=== PATIENT | female | born 1970 | race African-American/Black ===

== ENCOUNTER 2017-10-08 14:21 | Emergency (ER) | payer MEDICAID, SELFPAY ==
[2017-10-08 14:22] VITALS: BP 152/84; PULSE 74; RESP 16; TEMP 36.7; O2SAT 96; BMI 36.2
--- NOTE | 2017-10-08 14:49 | RAD_ITS ---
STUDY: X-RAY - LEFT ANKLE REASON FOR EXAM: Female, 47 years old. Fall. Pain. TECHNIQUE: 3 view(s) of the ankle. COMPARISON: None. FINDINGS: Normal visualized distal tibia and fibula. Normal medial and lateral malleoli. Normal tibiotalar articulation and ankle mortise. Normal visualized talus and calcaneus. The visualized subtalar, talonavicular, calcaneocuboid and tarsal articulations are normal. The soft tissue structures are unremarkable. RAD/Ankle min 3 Views IMPRESSION: No significant abnormality. Electronically Signed: Ernie Jennings MD at 15:31 EST , Service support ,
--- NOTE | 2017-10-08 14:49 | RAD_ITS ---
STUDY: X-RAY - RIGHT HAND REASON FOR EXAM: Female, 47 years old. Generalized hand pain. TECHNIQUE: Three view(s) of the hand. COMPARISON: None. FINDINGS: Bones: There are no acute osseous abnormalities. Joints: The joints are unremarkable. Soft tissues: The soft tissues are unremarkable. Foreign body: None RAD/Hand Min 3 Views IMPRESSION: No acute abnormalities are seen in the hand. Electronically Signed: Ernie Jennings MD at 15:34 EST , Service support ,
--- NOTE | 2017-10-08 14:49 | RAD_ITS ---
STUDY: X-RAY CHEST REASON FOR EXAM: Female, 47 years old. Left clavicle pain after fall. Chest pain. TECHNIQUE: Frontal and lateral views of the chest. COMPARISON: June 18, 2017 FINDINGS: The lungs are clear and expanded. There is no demonstrated pleural abnormality. Normal size heart. Normal mediastinum and hue. Normal visualized pulmonary arteries. Normal visualized aortic arch and descending thoracic aorta. Normal visualized thoracic spine. Normal visualized ribs, clavicles, and shoulders. There is no demonstrated abnormality of the visualized soft tissue structures of the upper abdomen. RAD/Chest PA and Lateral IMPRESSION: No interval change and no significant abnormality. Electronically Signed: Ernie Jennings MD at 15:38 EST , Service support ,
--- NOTE | 2017-10-08 14:49 | RAD_ITS ---
STUDY: X-RAY - PELVIS REASON FOR EXAM: Female, 47 years old. Fall. Bilateral hip pain. TECHNIQUE: One view of the pelvis was obtained. COMPARISON: None. FINDINGS: There is a non-specific bowel gas pattern. Normal visualized soft tissue structures. Normal bilateral iliac wings, sacroiliac joints and visualized sacrum. Normal visualized bilateral superior and inferior pubic rami. Normal pubic symphysis. Normal ischial tuberosities. Normal visualized right femoral head. Normal right acetabulum. Normal right hip joint. Normal visualized left femoral head. Normal left acetabulum. Normal left hip joint. RAD/Pelvis 1 or 2 Views IMPRESSION: No significant abnormality. Electronically Signed: Ernie Jennings MD at 15:35 EST , Service support ,
--- NOTE | 2017-10-08 14:49 | RAD_ITS ---
STUDY: X-RAY - LEFT FOOT CLINICAL: Female, 47 years old. Fall. Pain. TECHNIQUE: 3 view(s) of the foot. COMPARISON: None. FINDINGS: Normal talus, calcaneus, and tarsal bones. Normal visualized subtalar, talonavicular, calcaneocuboid, tarsal and tarsometatarsal articulations. Normal metatarsi. Normal metatarsophalangeal joint of the great toe. Normal tibial and fibular sesamoid bones. Normal interphalangeal joint of the great toe. Normal phalanges of the great toe. Normal second through fifth metatarsophalangeal joints. Normal interphalangeal joints and phalanges of the lesser toes. The soft tissue structures are unremarkable. RAD/Foot min 3 Views IMPRESSION: No significant abnormality. Electronically Signed: Ernie Jennings MD at 15:34 EST , Service support ,
--- NOTE | 2017-10-08 14:51 | ED.VISSUMM ---
- ER Visit Summary Date of Service: 10/08/17 Chief Complaint: Fall History of Present Illness: The patient is a 47 F who presents to the emergency department after a mechanical fall. The patient states she slipped on ice this AM. She landed on her right side, striking her hip and right hand. When she tried to stand, she fell again, landing on her left side twisting her left ankle and hitting her left collarbone. She did not strike her head. She denies loss of consciousness. She states the pain has gradually worsened throughout the day. She has said that ice has helped. She does not take anticoagulants. Physical Examination: Vital signs reviewed General: Well-nourished, well-developed Head: Normocephalic, atraumatic Eyes: Pupils equal and reactive, extraocular muscles intact Neck, supple, no lymphadenopathy Heart: Regular rate and rhythm Respiratory: No distress, clear bilaterally, mild tenderness over the left anterior clavicle with no deformity or step-off Abdomen: Soft, nontender, nondistended, no peritoneal signs Back: Nontender Extremities: Tenderness in the palmar right hand. Normal pulses. Pain at the elbow. No pain at the shoulder. Mild pain over the lateral malleolus of the left ankle. Normal pulses. Hernandez negative. Tenderness to palpation over both hips. No pain with logroll. Pelvis stable. Skin: Normal color no rash Neuro: Alert and oriented, no focal or lateralizing deficits Test Results: [] Emergency Department Course and Treatment: I did obtain plain films of the patient's injured areas. There is no evidence of acute fracture. She is able to ambulate with a steady gait. The patient was given one [place] here. She will be continued on anti-inflammatories and antispasmodics at home. She was counseled on concerning symptoms and reasons to return. Treatment Plan: [] Disposition: Discharge Impression:. Mechanical fall 2. Bilateral hip contusions 3. Right hand contusion 4. Left ankle sprain This note was generated with [employer] dictation software. It may contain incorrect words, spelling, and punctuation that were not noted in review of the chart prior to signing ED Disposition - Plan for ED Patient: Chief Complaint: Fall Instructions: ED Mechanical Fall Prescriptions: Naproxen [Naprosyn] 500 mg PO BID PRN #20 tab Cyclobenzaprine [Flexeril] 10 mg PO TID PRN #20 tab PRN Reason: Muscle Spasm Referrals: Rohith Paulino MD [Primary Care Provider] -
[2017-10-08] MEDS: Acetaminophen/Codeine #3 Tablet 1 TABLET PO (16:18)
[2017-10-08 16:20] VITALS: BP 139/84; PULSE 78; RESP 20; O2SAT 98
--- NOTE | 2017-10-08 16:20 | ED.RN ---
THIS NURSE REVIEWED D/C INSTRUCTIONS WITH PT. PT VERBALIZED UNDERSTANDING OF INSTRUCTIONS. PT DENIES FURTHER NEEDS OR QUESTIONS AT THIS TIME. PT AMBULATES FROM ROOM ON OWN WITHOUT ASSISTANCE FROM STAFF
== END 2017-10-08 16:21 | disposition home or self-care (01) ==
LOC: ED 14:54
PROVIDERS: Emergency Provider Emergency Medicine; Family Provider Family Medicine; PCP Family Medicine
DX: S70.02XA Contusion of left hip, initial encounter (principal); S70.01XA Contusion of right hip, initial encounter; S60.221A Contusion of right hand, initial encounter; S93.402A Sprain of unspecified ligament of left ankle, initial encounter; M25.521 Pain in right elbow; W00.0XXA Fall on same level due to ice and snow, initial encounter; Y93.9 Activity, unspecified; Y92.9 Unspecified place or not applicable; Z86.79 Personal history of other diseases of the circulatory system; Z86.39 Personal history of other endocrine, nutritional and metabolic disease; Z87.891 Personal history of nicotine dependence; Z79.899 Other long term (current) drug therapy
CPT/HCPCS: 71046; 72170; 73130; 73610; 73630; 99283; A4216

== ENCOUNTER 2017-12-20 10:19 | Observation (INO) | payer MEDICAID, SELFPAY ==
[2017-12-20] VITALS (9 sets, daily range): BP systolic 138–150; BP diastolic 74–96; PULSE 62–78; RESP 16; TEMP 36.4–37; O2SAT 94–99; BMI 37.4
--- NOTE | 2017-12-20 10:28 | EKG12_ITS ---
Test Reason : CP Blood Pressure : / mmHG Vent. Rate : 073 BPM Atrial Rate : 073 BPM P-R Int : 200 ms QRS Dur : 074 ms QT Int : 420 ms P-R-T Axes : 060 033 030 degrees QTc Int : 462 ms Normal sinus rhythm T wave abnormality, consider anterior ischemia Abnormal ECG Confirmed by DIMA PRESLEY, KIMO ([id number]), news videotape editor KANDIS SANTOS ([id number]) on 12/23/2017 12:54:53 PM Referred By: YESY Confirmed By:KIMO CH MD
--- NOTE | 2017-12-20 10:28 | RAD_ITS ---
STUDY: X-RAY CHEST REASON FOR EXAM: Female, 47 years old. Chest tightness and pressure. TECHNIQUE: Single portable frontal view of the chest. COMPARISON: October 08, 2017. FINDINGS: The lungs are clear and expanded. There is no demonstrated pleural abnormality. Normal size heart. Normal mediastinum and hue. Normal visualized pulmonary arteries. Normal visualized aortic arch and descending thoracic aorta. Normal visualized thoracic spine. Normal visualized ribs, clavicles, and shoulders. There is no demonstrated abnormality of the visualized soft tissue structures of the upper abdomen. RAD/Chest 1 View (Portable) IMPRESSION: Normal x-ray examination of the chest. Electronically Signed: Brayan Ball MD at 10:50 EDT , Service support ,
--- NOTE | 2017-12-20 10:29 | ED.VISSUMM ---
- ER Visit Summary Date of Service: 12/20/17 Chief Complaint: Chest pain History of Present Illness: The patient is a 47 F presenting with chest heaviness. This started 2 hours prior to arrival. She has substernal heaviness associated with nausea. She has had no vomiting. She denies diaphoresis or shortness of breath. She has lightheadedness. She also states she has a tingling sensation in the right side of her face and right hand. She also complains of head pressure. She has had blurred vision in both eyes ?1 week. She has a history of hypertension. No PE/DVT risk factors. She is not a smoker. Physical Examination: Vitals are stable. Patient is afebrile. Alert no acute distress. HEENT exam is unremarkable. PERRLA, EOMI. Neck is supple. Lungs are clear and equal bilaterally. Heart is regular rate and rhythm. Abdomen is soft nontender nondistended. Extremities are unremarkable. Skin is warm and dry. No focal neurologic deficit. NIH 0 Remainder of exam is unremarkable. Emergency Department Course and Treatment: Patient was given aspirin on arrival. EKG is sinus rate of 73 with anterior T-wave inversion. Chest x-ray is normal. CBC, chemistries unremarkable. Troponin is negative. D-dimer is negative. Due to her neuro symptoms along with chest pain, CTA head neck and chest were obtained and show no acute process. Will discuss with the hospitalist for observation. Disposition: Observation Impression: Chest pain This note was generated with [employer] dictation software. It may contain incorrect words, spelling, and punctuation that were not noted in review of the chart prior to signing ED Disposition - Plan for ED Patient: Chief Complaint: Chest Pain Referrals: Rohith Paulino MD [NON-STAFF] -
[2017-12-20 10:42] LABS: Absolute Lymphocyte Count 2.22 X10^3/ul (0.83-4.51); Absolute Neutrophil Count 4.7 X10^3/uL (2.0-7.7); Basophil# 0.04 X10^3/uL; Basophil% 0.5 % (0-1); Eosinophil# 0.62 X10^3/uL; Eosinophils% 7.8 % (0-5); Hematocrit 38.6 % (37-47); Hemoglobin 13.1 g/dl (12.0-15.0); Lymphocyte # 2.22 X10^3/ul (4.0); Mean Corp Hgb Conc 33.9 g/gl (32-36); Mean Corpuscular Hgb 29.2 pg (27.0-32.0); Mean Platelet Vol. 9.9 fl (6.2-12.0); Monocyte# 0.35 X10^3/uL; Monocyte% 4.4 % (0-10); Neutrophil # 4.66 X10^3/uL (2.7-7.7); Neutrophil % 58.9 % (47-70); Platelet Count 351 K/mm3 (150-450); RBC Distribution Width SD 40.2 fl (35.1-43.9); Red Blood Count 4.49 M/mm3 (4.2-5.4); White Blood Count 7.9 K/mm3 (4.4-11.0)
[2017-12-20] MEDS: Aspirin 81 MG TAB.CHEW 324 MG PO (10:42)
[2017-12-20 10:45] LABS: POSITIVE COUNT NO; POSITIVE DIFFERENTIAL NO; POSITIVE MORPHOLOGY NO
[2017-12-20 11:00] LABS: Anion Gap 6 (5-15); BUN 8 mg/dL (7-18); BUN/Creat Ratio 7.8 RATIO (10-20); Chloride 104 mmol/L (98-107); Creatinine, Serum 1.02 mg/dL (0.55-1.02); EST Glomerular Filtration Rate 61 mL/min (>60); Est Glom Filt Rate - Afr Amer 74 mL/min (>60); Estimated Creatinine Clearance 57.61 ml/min; Glucose 101 mg/dL (74-106); Potassium 3.9 mmol/L (3.5-5.1); Sodium Level 139 mmol/L (136-145)
--- NOTE | 2017-12-20 11:24 | CT_ITS ---
Procedure: CT of the neck without and with contrast-bilateral. INDICATIONS: Headache and chest pain. TECHNIQUE: Axial CT through the neck vasculature. FINDINGS: Bilateral common carotid arteries, carotid bulbs and internal carotid arteries demonstrate mild multifocal plaque formation without hemodynamically significant stenosis. CT/CTA Neck W/WO Contrast IMPRESSION: No evident hemodynamically significant stenosis. Electronically Signed: Brayan Ball MD at 12:35 EDT , Service support ,
--- NOTE | 2017-12-20 11:24 | CT_ITS ---
STUDY: CTA OF THE BRAIN REASON FOR EXAM: Female, 47 years old. Headache, chest pain. RADIATION DOSAGE (If Supplied By Facility): CTDIvol = ( 31.67 ) mGy, DLP = ( 2731.65 ) mGycm TECHNIQUE: CT angiography was performed with a multi-detector CT scanner. Data acquisition was obtained from the skull base through the vertex following intravenous administration of ml of . MIP images were reconstructed from the axial data set. Post-processing of the angiographic images was performed, with multiplanar reformation and 3D reconstruction. Individualized dose optimization techniques were used for this CT. COMPARISON: None. FINDINGS: Normal bilateral petrous carotid arteries. Normal right cavernous carotid artery with a normal supraclinoid bifurcation. Normal left cavernous carotid artery with a normal supraclinoid bifurcation. Normal right A1 segments of the anterior cerebral artery. Normal left A1 segments of the anterior cerebral artery. Normal intact anterior communicating artery (ACOM). Normal bilateral A2 segments of the anterior cerebral arteries. Normal right M1 and M2 segments of the middle cerebral arteries, with a normal M1 bifurcation. Normal left M1 and M2 segments of the middle cerebral arteries, with a normal M1 bifurcation. Normal right posterior communicating artery (PCOM). Normal left posterior communicating artery (PCOM). Normal bilateral vertebral arteries. Normal basilar artery with a normal basilar bifurcation. The visualized bilateral superior cerebellar (SCA) arteries are normal. Normal bilateral P1, P2 and visualized P3 segments of the posterior cerebral arteries. There is no demonstrated aneurysm of the pilot station of [place]. There is no demonstrated abnormality of the visualized brain. CT/CTA Head W/WO Contrast IMPRESSION: Normal pilot [place] of [place] without a demonstrated aneurysm or hemodynamically significant stenosis. Electronically Signed: Brayan Ball MD at 12:34 EDT , Service support ,
--- NOTE | 2017-12-20 11:24 | CT_ITS ---
STUDY: CTA CHEST REASON FOR EXAM: Female, 47 years old. Headache, chest pain, history of hypertension, asthma. RADIATION DOSAGE (If Supplied By Facility): CTDIvol = ( 31.67 ) mGy, DLP = ( 2731.65 ) mGycm TECHNIQUE: The examination was performed with the intravenous administration of 100 ml of Isovue 370 contrast material. Post-processing of the angiographic images was performed, with multiplanar reformation and 3D reconstruction. Individualized dose optimization techniques were used for this CT. COMPARISON: No prior similar exams at this institution. FINDINGS: Normal enhancement of the main pulmonary artery and right and left pulmonary arteries out to third order branching. Normal enhancement of the bilateral peripheral pulmonary arteries. There is no demonstrated pulmonary embolism. Normal thoracic aorta and visualized great vessels. There is no demonstrated aortic dissection. Normal heart and pericardium. A few scattered multistation lymph nodes are evident. None of these are pathologic by size criteria. No pathologic hilar adenopathy. Normal visualized trachea and bronchi. The lungs are well expanded. There is dependent atelectasis without pulmonary nodule or mass. There is no pleural effusion. There is no pneumothorax. Normal chest wall structures. There is no acute osseous abnormality. There is no suspicious lytic or blastic osseous pathology. Normal visualized upper abdomen. CT/CTA Chest W/WO Contrast IMPRESSION: No evident pulmonary embolism or arterial dissection. No lung nodule or mass. No pathologic adenopathy. Electronically Signed: Brayan Ball MD at 12:22 EDT , Service support ,
--- NOTE | 2017-12-20 12:56 | PCM.HP.STD ---
Problem List (1) Chest pain Status: Acute Qualifiers: Chest pain type: unspecified Qualified Code(s): R07.9 - Chest pain, unspecified (2) Fibromyalgia Status: Chronic (3) Rheumatoid arthritis Status: Chronic Qualifiers: Rheumatoid arthritis location: unspecified site Rheumatoid factor presence: unspecified presence Qualified Code(s): M06.9 - Rheumatoid arthritis, unspecified History of Present Illness Date of Admission: 12/20/17 Chief Complaint: Chest pain 1 day The patient is a 47 year old F with past medical history of obesity, hypertension, fibromyalgia comes seen with 1 day history of substernal chest pain, constant, still with some nausea and lightheadedness but did not radiate, lasted for a few minutes and went away. She had associated headaches that have been persistent, denies any runny nose or congestion or sinus pressure. Vitals in the ED was stable except for slight elevation in blood pressure. Labs were unremarkable, troponins were negative. Past Medical History Past Medical History (Chronic Problems): Chronic Problems Fibromyalgia (Chronic) Rheumatoid arthritis (Chronic) Allergies Latex, Natural Rubber Allergy (Verified 12/20/17 10:36) Hives lidocaine Allergy (Verified 12/20/17 10:36) Anaphylaxis silver Allergy (Verified 12/20/17 10:36) Rash Sulfa (Sulfonamide Antibiotics) Allergy (Verified 12/20/17 10:36) Hives amlodipine [From Norvasc] Adverse Reaction (Verified 12/20/17 10:36) HEADACHE Home Medications: Ambulatory Orders Medication Instructions Recorded Duloxetine Hcl [Cymbalta] 120 mg PO QHS 06/18/17 Furosemide [Lasix] 20 mg PO BID 06/18/17 Lansoprazole [Lansoprazole] 30 mg PO DAILY 06/18/17 Metoprolol Succinate 50 mg PO DAILY 12/20/17 Surgical History: cholecystectomy, - - laparoscopy for tubal ligation Psychiatric History: No pertinent psych hx WE[employer]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 Dyspnea Respiratory: Denies: Cough, Hemoptysis, Shortness of breath at rest, Shortness of breath upon exertion, Sputum production Gastrointestinal: Denies: Abdominal Pain, Constipation, Hematemesis, Hematochezia, Nausea, Vomiting Genitourinary: Denies: Dysuria, Frequency, Incontinence Musculoskeletal: Denies: Joint Pain, Joint stiffness, Joint swelling, Joint Tenderness Skin: Denies: Pruritis, Rash, Wounds Neurological: Denies: Difficulty swallowing, Focal weakness, Numbness, Tingling Psychiatric: Denies: Anxiety, Depression, Homicidal Ideations, Suicidal Ideations Hematologic/ Lymphatic: Denies: Easy Bruising, Easy Bleeding VTE Information - Inpt Only VTE Present on Admission: No VTE Pharm Prophylaxis ordered?: Yes Patient Problems: Active and Suspected Problems Chest pain (Acute) - Physical Exam General: Alert, Oriented x3, Cooperative, No apparent distress, - - obes HEENT: Atraumatic, PERRLA, EOMI, Normocephalic Oral: Moist Mucosa Neck: Supple, No JVD, Negative Carotid Bruits, Negative Hepatojugular Reflux Lungs: Clear to auscultation, Normal air movement Cardiovascular: Regular rate, Regular Rhythm, Normal S1, Normal S2, No murmurs Abdomen: Bowel Sounds Present, Soft, Non Tender, Non-Distended, No Hepato-splenomegaly Extremities: No edema Skin: No rashes, No breakdown Musculoskeletal: No Tenderness to Palpation of Joints or Extremities Lymphatic: No Cervical, Supraclavicular, or Inguinal Adenopathy Neurological: Cranial nerves II-XII grossly intact Psych/Mental Status: Normal Affect, Appropriate Vital Signs Temp Pulse Resp BP Pulse Ox 98 F 69 16 149/94 H 94 12/20/17 10:37 12/20/17 12:41 12/20/17 12:41 12/20/17 12:41 12/20/17 12:41 Oxygen Delivery Method Room Air Weight: 99 kg Body Mass Index (BMI) 37.4 Laboratory Tests Past 24 Hrs 12/20/17 12/20/17 12/20/17 10:31 10:31 10:31 WBC 7.9 RBC 4.49 Hgb 13.1 Hct 38.6 MCV 86.0 MCH 29.2 MCHC 33.9 RDW 13.0 RDW Differential 40.2 Plt Count 351 MPV 9.9 Immature Gran % (Auto) 0.400 Neut % (Auto) 58.9 Lymph % (Auto) 28.0 Hinds % (Auto) 4.4 Eos % (Auto) 7.8 H Baso % (Auto) 0.5 Absolute Neuts (auto) 4.7 Absolute Lymphs (auto) 2.22 Total Counted Not Reportable D-Dimer Quant (PE/DVT) 0.30 Sodium 139 Potassium 3.9 Chloride 104 Carbon Dioxide 29.0 Anion Gap 6 BUN 8 Creatinine 1.02 Estim Creat Clear Calc 57.61 Est GFR (MDRD) Af Amer 74 Est GFR (MDRD) Non-Af 61 BUN/Creatinine Ratio 7.8 L Glucose 101 Calcium 9.0 Troponin I < 0.02 Assessment/Plan Active and Suspected Problems Chest pain (Acute) 47 year old F with past medical history of obesity, hypertension, fibromyalgia comes seen with 1 day history of substernal chest pain. 1. Atypical chest pain in a patient with risk factors of obesity, hypertension, no acute findings on EKG, stable vitals Plan: Admit to PCU, trend troponins, stress test in a.m., aspirin 81 mg p.o. daily, 2. Hypertension, continue home medications 3. Fibromyalgia, continue home medications 4. DVT Prophylaxis with Lovenox subcu Code Visit OBSV E&M: [id number] Initial observation care L3
--- NOTE | 2017-12-20 12:57 | NURSING ---
127 OBS CP PAINTSIL
[2017-12-20] MEDS: Acetaminophen 500 MG Tablet 1000 MG PO (13:02)
[2017-12-20] MEDS: Acetaminophen 650 MG/20 ML UDC PO (18:44)
[2017-12-20] MEDS: DULoxetine Hcl 60 MG Capsule 120 MG PO (20:53)
[2017-12-20] MEDS: Furosemide 20 MG Tablet PO (20:54)
[2017-12-21 03:00] VITALS: PULSE 73
--- NOTE | 2017-12-21 04:00 | EKG12_ITS ---
Test Reason : AM EKG Blood Pressure : / mmHG Vent. Rate : 071 BPM Atrial Rate : 071 BPM P-R Int : 202 ms QRS Dur : 078 ms QT Int : 430 ms P-R-T Axes : 046 030 031 degrees QTc Int : 467 ms Normal sinus rhythm Normal ECG When compared with ECG of 20-DEC-2017 10:24, MANUAL COMPARISON REQUIRED, DATA IS UNCONFIRMED Confirmed by DIMA PRESLEY, KIMO ([id number]), proposal editor KANDIS SANTOS ([id number]) on 12/23/2017 1:26:07 PM Referred By: DEVAUGHN Confirmed By:KIMO CH MD
[2017-12-21 05:18] LABS: Hematocrit 36.2 % (37-47); Hemoglobin 12.2 g/dl (12.0-15.0); Mean Corp Hgb Conc 33.7 g/gl (32-36); Mean Corpuscular Hgb 29.3 pg (27.0-32.0); Mean Platelet Vol. 9.4 fl (6.2-12.0); Platelet Count 290 K/mm3 (150-450); RBC Distribution Width CV 13.3 % (11.6-14.6); RBC Distribution Width SD 42.5 fl (35.1-43.9); Red Blood Count 4.16 M/mm3 (4.2-5.4); White Blood Count 7.6 K/mm3 (4.4-11.0)
[2017-12-21 05:19] LABS: Scan Indicated on CBC? Y/N NO
[2017-12-21 05:36] LABS: Anion Gap 7 (5-15); BUN 10 mg/dL (7-18); BUN/Creat Ratio 11.1 RATIO (10-20); Calcium,Total 8.4 mg/dL (8.5-10.1); Chloride 107 mmol/L (98-107); EST Glomerular Filtration Rate 70 mL/min (>60); Est Glom Filt Rate - Afr Amer 85 mL/min (>60); Estimated Creatinine Clearance 65.29 ml/min; Glucose 102 mg/dL (74-106); Potassium 3.6 mmol/L (3.5-5.1); Sodium Level 142 mmol/L (136-145)
[2017-12-21 05:47] LABS: Prothrombin Time (Protime)PT. 13.2 SECONDS (11.7-14.9)
[2017-12-21 05:48] LABS: Partial Thromboplast Time 31.7 Seconds (24.1-36.2)
[2017-12-21] MEDS: Aspirin 81 MG TAB.CHEW PO (05:54)
[2017-12-21 05:58] VITALS: BP 129/87; PULSE 74; RESP 18; TEMP 36.8; O2SAT 96
[2017-12-21 06:16] VITALS: PULSE 71
[2017-12-21 09:50] VITALS: BP 129/78; PULSE 78; RESP 16; TEMP 36.6; O2SAT 96
[2017-12-21] MEDS: Pantoprazole Sodium 40 MG Tablet PO (09:55)
[2017-12-21] MEDS: Furosemide 20 MG Tablet PO (09:55)
[2017-12-21 11:04] VITALS: PULSE 78
--- NOTE | 2017-12-21 11:12 | STRESSREP_ITS ---
Stress Test Report Exercise myocardial perfusion stress test. 47-year-old lady with a history of chest pain. Next Stress protocol: Resting EKG demonstrates normal sinus rhythm with rate of 72 bpm normal intervals and noted resting blood pressure is 144/90. The patient exercised according to regular Rich protocol for total duration of 6 minutes the maximum heart rate attained was 151 bpm which was 88% of maximum predicted heart rate the maximum workload was 7 metabolic equivalents. At rest there were no ST or T -wave changes noted suggest ischemia peak exercise upsloping ST changes only were noted with no meet the criteria for ischemia. The resting blood pressure is 144/90 with a peak blood pressure 172/80 mmHg. The rate pressure product was 27 5800. Myocardial perfusion protocol. 14.7 mCi of technetium 99m sestamibi was injected at rest. The patient exercised according to regular Rich protocol for total duration of 6 minutes attaining a workload of 7 metabolic equivalents. At peak exercise 44.2 mCi of technetium 99m sestamibi was injected. Stress images were obtained stress and rest images were reconstructed and compared in the short axis vertical long and horizontal long axis. Gated images were also obtained. Perfusion SPECT analysis: Review of the stress images demonstrate normal uptake of tracer noted in all areas of the myocardium. The resting images similarly demonstrate normal uptake of tracer noted in all areas of the myocardium. No areas of reversibility were noted suggest ischemia no previous infarct was noted. Gated SPECT analysis. The gated ejection fraction is noted to be 72%. Conclusion: Normal exercise myocardial perfusion stress test at a moderate workload with no ischemia. Preserved ejection fraction.
--- NOTE | 2017-12-21 11:42 | DCINST_ITS ---
- Discharge Diagnoses Current Active Problems: Current Active and Chronic Problems Chest pain (Acute) Fibromyalgia (Chronic) Rheumatoid arthritis (Chronic) You will use the following diet at home:: Cardiac Your food should be the consistency of: Regular Your liquids should be the consistency of: Regular/Thin Discharge Activity: Return to Normal Activity Allergies/Adverse Reactions: Allergies Latex, Natural Rubber Allergy (Verified 12/20/17 10:36) Hives lidocaine Allergy (Verified 12/20/17 10:36) Anaphylaxis silver Allergy (Verified 12/20/17 10:36) Rash Sulfa (Sulfonamide Antibiotics) Allergy (Verified 12/20/17 10:36) Hives amlodipine [From [facility]] Adverse Reaction (Verified 12/20/17 10:36) HEADACHE Medications to take at Discharge Duloxetine Hcl [Cymbalta] 120 mg PO QHS 06/18/17 Furosemide [Lasix] 20 mg PO BID 06/18/17 Lansoprazole 30 mg PO DAILY 06/18/17 Metoprolol Succinate 50 mg PO DAILY 12/20/17 Primary Care Physician: Rohith Paulino MD [NON-STAFF] - Please follow up with your Primary Care Physician in: 1-2 weeks Proposed Discharge Date: 12/21/17
[2017-12-21] MEDS: Acetaminophen 650 MG/20 ML UDC PO (12:02)
--- NOTE | 2017-12-21 13:16 | PCM.DC.SUM ---
<Ted El - Last Filed: 12/21/17 13:16> Discharge Date and Diagnosis Date of Admission: 12/20/17 Date of Discharge: 12/21/17 - Primary Discharge Diagnosis Active and Suspected Problems Chest pain (Acute) - musculoskeletal Fibromyalgia RA HTN Obesity - Secondary Discharge Diagnosis Chronic Problems Fibromyalgia (Chronic) Rheumatoid arthritis (Chronic) Hospital Course and Treatment Imaging Results: Stress test: Conclusion: Normal exercise myocardial perfusion stress test at a moderate workload with no ischemia. Preserved ejection fraction. RAD/Chest 1 View (Portable) IMPRESSION: Normal x-ray examination of the chest. CT/CTA Chest W/WO Contrast IMPRESSION: No evident pulmonary embolism or arterial dissection. No lung nodule or mass. No pathologic adenopathy. CT/CTA Head W/WO Contrast IMPRESSION: Normal [place] without a demonstrated aneurysm or hemodynamically significant stenosis. CT/CTA Neck W/WO Contrast IMPRESSION: No evident hemodynamically significant stenosis. Operations: None Procedures: Stress test Summary of Care Provided: Physical exam on day of discharge: General: Resting comfortably NAD Psych: A/Ox3 normal affect HEENT: PEARRLA AT NC Neck: Supple NT CV: RRR no m/t/r/g/h Resp: CTA Abd: [id number] Soft NT no guarding or rigidity, obese Ext: DP2+= no edema Skin: W/D normal turgor Lymph/Heme: No active bleeding or adenopathy Neuro: CN2-12 intact Hospital course: The patient is a 47 year old F with a hx of htn, obesity, RA, fibromyalgia who presented to the ER with C/C of chest pain described as substernal pain that lasted for about a few minutes with no radiation, but with nausea, LH, and headache. She had negative CXR, negative CTA chest, and negative troponin, and EKG. She was admitted for CP workup. We cycled troponins, kept her on tele, and had her undergo a stres test the following morning. Workup was negative for cardiac etiology. The patients CP was felt to be musculoskeletal in origin. She was discharged home in stable condition. Please follow up with your PCP in 1-2 weeks. This patient was seen by Ted El PA-C under the supervision of Doctor Casper. [] Discharge Diet: Low fat/ Low Cholesterol, 1800 Calorie Control Diet, 2000 mg Sodium Diet Discharge Activity: Return to Normal Activity Home Medications: Medications to take at Discharge RX: Duloxetine Hcl [Cymbalta] 120 mg PO QHS 06/18/17 RX: Furosemide [Lasix] 20 mg PO BID 06/18/17 RX: Lansoprazole 30 mg PO DAILY 06/18/17 RX: Metoprolol Succinate 50 mg PO DAILY 12/20/17 Primary Care Physician: Rohith Paulino MD [NON-STAFF] - Please follow up with your Primary Care Physician in: 1-2 weeks Disposition: Home Minutes spent on discharge:: 35 Patient Condition:: Stable Medical Necessity - Tobacco Use Smoking Status: Never smoker Tobacco Use: Secondhand Meaningful Use Info Meaningful Use Diagnoses (Choose all that apply): None applicable <Edel Casper - Last Filed: 12/21/17 15:07> Discharge Date and Diagnosis - Secondary Discharge Diagnosis Chronic Problems Fibromyalgia (Chronic) Rheumatoid arthritis (Chronic) Hospital Course and Treatment Summary of Care Provided: The patient is a 47 year old F [] Code Visit OBSV E&M: 48174 Observation care discharge
--- NOTE | 2017-12-21 13:22 | DS.PCM_ITS ---
<Ted El - Last Filed: 12/21/17 13:16> Discharge Date and Diagnosis Date of Admission: 12/20/17 Date of Discharge: 12/21/17 - Primary Discharge Diagnosis Active and Suspected Problems Chest pain (Acute) - musculoskeletal Fibromyalgia RA HTN Obesity - Secondary Discharge Diagnosis Chronic Problems Fibromyalgia (Chronic) Rheumatoid arthritis (Chronic) Hospital Course and Treatment Imaging Results: Stress test: Conclusion: Normal exercise myocardial perfusion stress test at a moderate workload with no ischemia. Preserved ejection fraction. RAD/Chest 1 View (Portable) IMPRESSION: Normal x-ray examination of the chest. CT/CTA Chest W/WO Contrast IMPRESSION: No evident pulmonary embolism or arterial dissection. No lung nodule or mass. No pathologic adenopathy. CT/CTA Head W/WO Contrast IMPRESSION: Normal [place] without a demonstrated aneurysm or hemodynamically significant stenosis. CT/CTA Neck W/WO Contrast IMPRESSION: No evident hemodynamically significant stenosis. Operations: None Procedures: Stress test Summary of Care Provided: Physical exam on day of discharge: General: Resting comfortably NAD Psych: A/Ox3 normal affect HEENT: [place] AT NC Neck: Supple NT CV: RRR no m/t/r/g/h Resp: CTA Abd: [id number] Soft NT no guarding or rigidity, obese Ext: DP2+= no edema Skin: W/D normal turgor Lymph/Heme: No active bleeding or adenopathy Neuro: CN2-12 intact Hospital course: The patient is a 47 year old F with a hx of htn, obesity, RA, fibromyalgia who presented to the ER with C/C of chest pain described as substernal pain that lasted for about a few minutes with no radiation, but with nausea, LH, and headache. She had negative CXR, negative CTA chest, and negative troponin, and EKG. She was admitted for CP workup. We cycled troponins, kept her on tele, and had her undergo a stres test the following morning. Workup was negative for cardiac etiology. The patients CP was felt to be musculoskeletal in origin. She was discharged home in stable condition. Please follow up with your PCP in 1-2 weeks. This patient was seen by Ted El PA-C under the supervision of Doctor Casper. [] Discharge Diet: Low fat/ Low Cholesterol, 1800 Calorie Control Diet, 2000 mg Sodium Diet Discharge Activity: Return to Normal Activity Home Medications: Medications to take at Discharge RX: Duloxetine Hcl [Cymbalta] 120 mg PO QHS 06/18/17 RX: Furosemide [Lasix] 20 mg PO BID 06/18/17 RX: Lansoprazole 30 mg PO DAILY 06/18/17 RX: Metoprolol Succinate 50 mg PO DAILY 12/20/17 Primary Care Physician: Rohith Paulino MD [NON-STAFF] - Please follow up with your Primary Care Physician in: 1-2 weeks Disposition: Home Minutes spent on discharge:: 35 Patient Condition:: Stable Medical Necessity - Tobacco Use Smoking Status: Never smoker Tobacco Use: Secondhand Meaningful Use Info Meaningful Use Diagnoses (Choose all that apply): None applicable <Edel Casper - Last Filed: 12/21/17 15:07> Discharge Date and Diagnosis - Secondary Discharge Diagnosis Chronic Problems Fibromyalgia (Chronic) Rheumatoid arthritis (Chronic) Hospital Course and Treatment Summary of Care Provided: The patient is a 47 year old F [] Code Visit OBSV E&M: 90440 Observation care discharge
== END 2017-12-21 11:41 | disposition home or self-care (01) ==
LOC: ED 11:06 → PCU 13:01
PROVIDERS: Admitting Provider Internal Medicine; Emergency Provider Emergency Medicine; Family Provider Family Medicine; PCP Family Medicine; Visit Provider Internal Medicine
DX: R07.89 Other chest pain (principal); R11.0 Nausea; R42 Dizziness and giddiness; H53.8 Other visual disturbances; I10 Essential (primary) hypertension; R06.9 Unspecified abnormalities of breathing; M79.7 Fibromyalgia; Z79.899 Other long term (current) drug therapy; E66.9 Obesity, unspecified; Z68.37 Body mass index [BMI] 37.0-37.9, adult; Z71.3 Dietary counseling and surveillance; R51 Headache
CPT/HCPCS: 36415; 70496; 70498; 71045; 71275; 78452; 80048; 84484; 85025; 85027; 85379; 85610; 85730; 93005; 93017; 97802; 99218; 99285; A9500; Q9967; A4216; G0378; J2785

== ENCOUNTER 2017-12-22 22:28 | Emergency (ER) | payer MEDICAID, SELFPAY ==
[2017-12-22 22:28] VITALS: BP 115/81; PULSE 80; RESP 14; TEMP 36.4; O2SAT 98; BMI 34.3
[2017-12-22] MEDS: proCHLORPERazine 10 MG/2 ML Vial IV (23:10)
[2017-12-22] MEDS: 0.9% Normal Saline 1,000 ML 999 ML IV (23:10)
--- NOTE | 2017-12-22 23:58 | ED.DCSUM_ITS ---
- ER Visit Summary Date of Service: 12/22/17 Chief Complaint: Headache History of Present Illness: The patient is a 47 F who has a headache. She has had this headache for 4 days. She describes it similar to prior migraine headaches. She has had nausea and vomiting today. She has blurred vision with photophobia. She took her Imitrex at home but it did not help. Denies any fevers. Physical Examination: Vital signs reviewed. HEENT exam unremarkable. Heart is regular rate and rhythm without murmurs. Lungs are clear to auscultation. Abdomen is soft and nontender. Extremities reveal no edema. Skin exam normal. Neurologic exam normal. Test Results: None indicated Emergency Department Course and Treatment: Patient was given Compazine, Benadryl and normal saline. Upon reevaluation she is much improved and would like to go home. She will take her home medications and follow-up with PCP Treatment Plan: [] Disposition: Discharge Impression: Migraine headache This note was generated with [employer] dictation software. It may contain incorrect words, spelling, and punctuation that were not noted in review of the chart prior to signing ED Disposition - Plan for ED Patient: Chief Complaint: Headache Referrals: Ashutosh Dwyer MD [Primary Care Provider] -
--- NOTE | 2017-12-22 23:58 | ED.DEP ---
ED Disposition - Plan for ED Patient: Disposition: Home or Assisted Living Chief Complaint: Headache Instructions: ED Headache Migraine Referrals: Ashutosh Dwyer MD [Primary Care Provider] -
[2017-12-23 00:17] VITALS: RESP 18
== END 2017-12-23 00:17 | disposition home or self-care (01) ==
PROVIDERS: Emergency Provider Emergency Medicine; Family Provider Family Medicine; PCP Family Medicine
DX: G43.909 Migraine, unspecified, not intractable, without status migrainosus (principal); J45.909 Unspecified asthma, uncomplicated; I10 Essential (primary) hypertension; M79.7 Fibromyalgia; M06.9 Rheumatoid arthritis, unspecified; Z79.899 Other long term (current) drug therapy
CPT/HCPCS: 96361; 96374; 96375; 99283; J7030; A4216

== ENCOUNTER 2018-04-17 15:01 | Emergency (ER) | payer MEDICAID, SELFPAY ==
[2018-04-17 15:04] VITALS: BP 135/92; PULSE 95; RESP 17; TEMP 36.9; O2SAT 98; BMI 36.8
[2018-04-17] MEDS: Aspirin 81 MG TAB.CHEW 324 MG PO (15:28)
[2018-04-17 15:29] LABS: Absolute Lymphocyte Count 2.74 X10^3/ul (0.83-4.51); Absolute Neutrophil Count 4.4 X10^3/uL (2.0-7.7); Basophil# 0.04 X10^3/uL; Basophil% 0.5 % (0-1); Eosinophil# 0.49 X10^3/uL; Eosinophils% 6.1 % (0-5); Hematocrit 40.5 % (37-47); Hemoglobin 13.3 g/dl (12.0-15.0); Lymphocyte # 2.74 X10^3/ul (4.0); Lymphocyte % 34.2 % (19-41); Mean Corp Hgb Conc 32.8 g/gl (32-36); Mean Corpuscular Hgb 28.2 pg (27.0-32.0); Monocyte# 0.31 X10^3/uL; Monocyte% 3.9 % (0-10); Neutrophil # 4.43 X10^3/uL (2.7-7.7); Neutrophil % 55.2 % (47-70); Platelet Count 360 K/mm3 (150-450); RBC Distribution Width CV 13.3 % (11.6-14.6); RBC Distribution Width SD 41.8 fl (35.1-43.9); Red Blood Count 4.71 M/mm3 (4.2-5.4)
[2018-04-17] MEDS: Acetaminophen 500 MG Tablet 1000 MG PO (15:29)
[2018-04-17] MEDS: 0.9% Normal Saline 1,000 ML 150 ML IV (15:29)
[2018-04-17 15:42] LABS: POSITIVE COUNT NO; POSITIVE DIFFERENTIAL NO; POSITIVE MORPHOLOGY NO
[2018-04-17 15:53] LABS: D-Dimer Quantitative (DVT/PE) 0.34 FEU/ug/m (0.27-0.49)
[2018-04-17 15:56] LABS: Anion Gap 5 (5-15); BUN 6 mg/dL (7-18); BUN/Creat Ratio 5.9 RATIO (10-20); Calcium,Total 9.1 mg/dL (8.5-10.1); Chloride 102 mmol/L (98-107); Creatinine, Serum 1.01 mg/dL (0.55-1.02); EST Glomerular Filtration Rate 62 mL/min (>60); Est Glom Filt Rate - Afr Amer 75 mL/min (>60); Estimated Creatinine Clearance 57.54 ml/min; Glucose 81 mg/dL (74-106); Potassium 3.5 mmol/L (3.5-5.1); Sodium Level 137 mmol/L (136-145)
--- NOTE | 2018-04-17 15:56 | NURSING ---
UNABLE TO REACH [facility] IN [place], [place] ABOUT GETTING H AND P, STRESS TEST RESULTS. ALL PHONE NUMBERS RING BUSY.
--- NOTE | 2018-04-17 16:04 | NURSING ---
TALKED TO JOSEPH AT [place], [place]. SHE WILL FAX H AND P AND STRESS TEST RESULTS
[2018-04-17 16:07] VITALS: BP 135/84; PULSE 78; RESP 12
--- NOTE | 2018-04-17 16:40 | ED.VISSUMM ---
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 She reports that at 1:00 this afternoon she had the onset of chest pain while exerting herself. She reports that it is been constant since that time. She describes it as a tightness with sharp pains that come and go and lasts seconds at a time. Pain is 8 out of 10 at worst and 5 out of 10 currently. Is worsened by lifting her arms up. Is relieved by deep breaths. She reports that she has been lightheaded with this. She denies any associated nausea, vomiting, diaphoresis, shortness of breath. She reports that she had a similar episode earlier this month while she was in [place] and had a stress test that was negative then. Physical Examination: Vitals: Stable. Afebrile. General: Well-nourished and well-developed. Head: Normocephalic atraumatic. Neck: Supple, no lymphadenopathy. No JVD. Nontender. Cardiovascular: Regular rate and rhythm. No murmurs. Respiratory: No respiratory distress. Clear to auscultation bilaterally. Mild tenderness palpation over the costochondral margin bilaterally that does not radiate produce her pain. Abdominal: Soft, nontender, nondistended, normal bowel sounds. No guarding, rebound, or peritoneal signs. Back: Nontender. Extremities: Nontender, no edema. Skin: Normal color, no rash. Neurologic: Alert and oriented ?3. Cranial nerves II through XII are intact. Normal strength and sensation. Psych: Normal affect. Test Results: EKG is sinus at [address] changes. Is unchanged from November of this year. Troponins negative. D-dimer is negative. Chem-7 is more for BUN of 6. CBC is more for eosinophils of 6. Chest x-ray is normal. Emergency Department Course and Treatment: Patient was treated with aspirin and Tylenol. She is resting comfortably. I did receive the stress test from [place] and it was negative. She also had a stress test here December 21 that was normal. Treatment Plan: The patient's pain is very atypical. I feel that she is a suitable candidate for further outpatient evaluation. She will be discharged with instructions to follow-up with Dr. Dwyer as soon as possible. Return to the emergency department for any worsening symptoms. Disposition: To home in improved and stable condition. Impression: 1. Atypical chest pain. 2. CONNIE score of 0. This note was generated with [facility] dictation software. It may contain incorrect words, spelling, and punctuation that were not noted in review of the chart prior to signing ED Disposition - Plan for ED Patient: Chief Complaint: Chest Pain Instructions: ED Chest Pain Atypical Unkn Cause Referrals: Ashutosh Dwyer MD [Primary Care Provider] - As soon as possible
[2018-04-17 16:48] VITALS: BP 122/84; PULSE 85; RESP 14; O2SAT 99
== END 2018-04-17 16:54 | disposition home or self-care (01) ==
LOC: ED 15:57
PROVIDERS: Emergency Provider Emergency Medicine; Family Provider Family Medicine; PCP Family Medicine
DX: R07.89 Other chest pain (principal); R42 Dizziness and giddiness; R51 Headache; J45.909 Unspecified asthma, uncomplicated; I10 Essential (primary) hypertension; M06.9 Rheumatoid arthritis, unspecified; M32.9 Systemic lupus erythematosus, unspecified; Z79.899 Other long term (current) drug therapy
CPT/HCPCS: 71045; 80048; 84484; 85025; 85379; 93005; 96360; 99284; A4216

== ENCOUNTER 2018-11-21 17:05 | Emergency (ER) | payer MEDICAID, SELFPAY ==
[2018-11-21 17:06] VITALS: BP 158/88; PULSE 83; RESP 20; TEMP 36.4; O2SAT 98; BMI 34.3
--- NOTE | 2018-11-21 17:19 | ED.DCSUM_ITS ---
- ER Visit Summary Date of Service: 11/21/18 Chief Complaint: Headache History of Present Illness: The patient is a 48 F who presents with a headache. She said this headache for 4 days. It similar to her prior headaches. She feels like her head and face are full. She has had nausea with no vomiting. No sore throat or sinus pressure. She has had some blurry vision. Denies any falls or direct trauma. She does have a history of migraine headaches. She tried Tylenol at home without any relief. Physical Examination: Vital signs reviewed. HEENT exam unremarkable. Heart is regular rate and rhythm without murmurs. Lungs are clear to auscultation. Abdomen is soft and nontender. Extremities reveal no edema. Skin exam normal. Neurologic exam normal. Test Results: None performed Emergency Department Course and Treatment: Patient was given Toradol and Phenergan. She states that her headache is feeling better. She will be discharged use her home medications. She will follow-up with her PCP Treatment Plan: [] Disposition: Discharge Impression: Migraine headache This note was generated with [employer] dictation software. It may contain incorrect words, spelling, and punctuation that were not noted in review of the chart prior to signing ED Disposition - Plan for ED Patient: Referrals: Ashutosh Dwyer MD [Primary Care Provider] -
[2018-11-21] MEDS: proMETHazine 25 MG/ML Syringe 12.5 MG IV (17:32)
[2018-11-21] MEDS: Ketorolac 30 MG/ML Syringe IV (17:32)
--- NOTE | 2018-11-21 18:06 | ED.DEP ---
ED Disposition - Plan for ED Patient: Disposition: Home or Assisted Living Instructions: ED Headache Migraine Referrals: Ashutosh Dwyer MD [Primary Care Provider] -
[2018-11-21 18:59] VITALS: BP 148/80; PULSE 78; RESP 18; O2SAT 99
== END 2018-11-21 19:01 | disposition home or self-care (01) ==
PROVIDERS: Emergency Provider Emergency Medicine; Family Provider Family Medicine; PCP Family Medicine
DX: G43.909 Migraine, unspecified, not intractable, without status migrainosus (principal)
CPT/HCPCS: 96374; 96375; 99283; A4216

== ENCOUNTER 2018-11-25 18:38 | Emergency (ER) | payer MEDICAID, SELFPAY ==
[2018-11-25 18:41] VITALS: BP 146/83; PULSE 74; RESP 16; TEMP 36.6; O2SAT 98; BMI 35.7
== END 2018-11-25 20:45 | disposition left against medical advice (07) ==
LOC: ED 20:14
PROVIDERS: Emergency Provider Emergency Medicine; Family Provider Family Medicine; PCP Family Medicine
DX: R51 Headache (principal)

== ENCOUNTER → 2019-03-16 | Outpatient (CLI) | payer MEDICAID, SELFPAY ==
--- NOTE | 2019-03-16 18:31 | CT_ITS ---
STUDY: CT MAXILLOFACIAL SINUSES REASON FOR EXAM: Female, 48 years old. Sinusitis RADIATION DOSAGE (If Supplied By Facility): CTDIvol = ( 33.06 ) mGy, DLP = ( 804.92 ) mGycm TECHNIQUE: The patient was scanned in a multi detector CT scanner. High resolution axial imaging was performed without the administration of intravenous contrast material. Sagittal and coronal images were reconstructed. Individualized dose optimization techniques were used for this CT. COMPARISON: None. FINDINGS: FRONTAL SINUSES: Normal aeration, without mucosal inflammatory disease. ETHMOIDAL SINUSES: Normal aeration, without mucosal inflammatory disease. MAXILLARY SINUSES: Normal aeration, without mucosal inflammatory disease. SPHENOIDAL SINUSES: Normal aeration, without mucosal inflammatory disease. There is patency of the bilateral maxillary infundibuli with normal uncinate processes, ethmoid bullae, and hiatus semilunaris. Normal bilateral middle turbinates. Normal bilateral inferior turbinates. Normal midline nasal septum. There is patency of the bilateral nasal airways. The visualized osseous structures are normal. The visualized bilateral orbital contents are normal. CT/Sinus/Facial Bone IMPRESSION: Normal CT examination of the maxillofacial sinuses. Electronically Signed: Bud Herman, at 19:41 EDT Tel , Service support ,
== END | disposition home or self-care (01) ==
LOC: CT 18:29
PROVIDERS: Family Provider Family Medicine; PCP Family Medicine; Visit Provider Otolaryngology
DX: J32.3 Chronic sphenoidal sinusitis (principal)
CPT/HCPCS: 70486

== ENCOUNTER 2019-04-04 16:14 | Emergency (ER) | payer MEDICAID, SELFPAY ==
[2019-04-04 16:15] VITALS: BP 153/86; PULSE 80; RESP 16; TEMP 37.1; O2SAT 99; BMI 33.7
--- NOTE | 2019-04-04 16:25 | CT_ITS ---
STUDY: CT BRAIN WITHOUT CONTRAST REASON FOR EXAM: Female, 49 years old. Headache RADIATION DOSAGE (If Supplied By Facility): CTDIvol = ( 44.99 ) mGy, DLP = ( 779.24 ) mGycm TECHNIQUE: Transaxial CT imaging of the brain was performed without administration of intravenous contrast material. Sagittal and coronal 2-D MPR. Individualized dose optimization techniques were used for this CT. COMPARISON: CT head 06/18/2017, CT angiogram head and neck 12/20/2017, CT sinus 03/16/2019 FINDINGS: Visualized portions of the paranasal sinuses are clear. Mastoid air cells and middle ear cavities clear. Symmetric and grossly normal features of the vestibular and acoustic apparatus of the temporal bones. Craniofacial osseous structures unremarkable. Extracranial soft tissues including orbital contents exhibit no acute process. There is a very slight asymmetry of the size of otherwise normal lateral ventricles, slitlike on the right, normal caliber of the left. This is typically a normal variant. Empty sella syndrome. Normal pituitary compressed against the floor of the sella turcica. Mild crowding of the basilar cisterns and posterior fossa without cerebellar tonsillar ectopia. Crowding of sulcation in the midportion of the right with normal sulcation in the apical portions of the brain. These features each may reflect normal variant. Taken together, these features could represent a relatively mild manifestations of intracranial hypertension. Not definitive. There is no acute intracranial bleed, mass or mass effect. There are no features of infarction. CT/Brain/Head without Contrast IMPRESSION: No definitive acute intracranial process is evident. Several ambiguous features of the brain may represent a normal variant but may be seen as a presentation of idiopathic intracranial hypertension. In the setting of headache syndromes, a follow-up noncontrast MRI of the brain may be appropriate. Electronically Signed: Pito Santos MD at 17:21 EDT Tel , Service support ,
--- NOTE | 2019-04-04 16:26 | ED.DCSUM_ITS ---
- ER Visit Summary Date of Service: 04/04/19 Chief Complaint: Headache History of Present Illness: The patient is a 49 F who presents with a headache. Symptoms have been going on for 5 days. They came on gradually. They feel like a pressure. The pain is in her frontal scalp, sides at times, back, and crown. Worse with light and certain positions. She tried Imitrex and Excedrin with minimal relief. She has a history of migraines, but not this bad. Her PCP referred her to the ED for evaluation and treatment. Patient reports a history of lupus. She describes her lupus manifestations as tiredness. She is denying fevers. She has multiple neurologic symptoms such as spots in front of her eyes, right face numbness, and left leg numbness. No speech changes. No focal weakness. She has a history of sinusitis, but she said her sinus symptoms are not that bad. Physical Examination: Afebrile and vital signs are unremarkable. HEENT exam unremarkable except for some diffuse facial tenderness around her orbits bilaterally. Cranial nerves grossly intact. Neck nontender with good range of motion. Skin appears normal. Heart regular. Lungs clear. Extremities unremarkable. With good strength and sensation. Test Results: CT brain pending. Emergency Department Course and Treatment: Patient was referred to the ED by her PCP for CT brain as well as evaluation and treatment. I believe the patient's symptoms are secondary to a migraine or other headache variant. We will check a CT. She will be treated with a migraine cocktail. She declined Benadryl. Symptoms are not consistent with hemorrhage, meningitis. Her neurologic symptoms do not follow a consistent anatomic pattern. CT showed no acute findings. She has some questionable findings that may represent idiopathic intracranial hypertension. Follow-up MRI was advised. I reevaluated the patient, she is much improved. I believe she is appropriate for outpatient follow-up. I spoke with Dr. Deshpande who will relay the message to her PCP. Treatment Plan: As above Disposition: Discharge Impression: 1. Headache This note was generated with [employer] software. It may contain incorrect words, spelling, and punctuation that were not noted in review of the chart prior to signing ED Disposition - Plan for ED Patient: Referrals: Ashutosh Dwyer MD [Primary Care Provider] -
[2019-04-04] MEDS: Ketorolac 30 MG/ML Syringe IV (16:43)
[2019-04-04] MEDS: proCHLORPERazine 10 MG/2 ML Vial IV (16:49)
[2019-04-04] MEDS: 0.9% Normal Saline 1,000 ML 999 ML IV (16:49)
--- NOTE | 2019-04-04 18:40 | ED.DEP ---
ED Disposition - Plan for ED Patient: Instructions: HEADACHE, Unspecified Referrals: Ashutosh Dwyer MD [Primary Care Provider] - Additional Instructions: Follow-up with your primary doctor for outpatient MRI as indicated
[2019-04-04 18:59] VITALS: BP 132/77; PULSE 68; RESP 15; O2SAT 98
== END 2019-04-04 19:01 | disposition home or self-care (01) ==
LOC: ED 17:11
PROVIDERS: Emergency Provider Emergency Medicine; Family Provider Family Medicine; PCP Family Medicine
DX: G43.909 Migraine, unspecified, not intractable, without status migrainosus (principal); M06.9 Rheumatoid arthritis, unspecified; Z79.82 Long term (current) use of aspirin; Z79.899 Other long term (current) drug therapy
CPT/HCPCS: 70450; 96361; 96374; 96375; 99283; J7030; A4216

== ENCOUNTER → 2019-05-11 08:29 | Outpatient (CLI) | payer MEDICAID, SELFPAY ==
--- NOTE | 2019-05-11 08:43 | BI_ITS ---
MAMMOGRAPHY - BILATERAL DIAGNOSTIC REASON FOR EXAM: Female, 49 years old. Bilateral breast lumps. History of prior breast reduction surgery with keloid formation. PERTINENT HISTORY: Non-contributory. TECHNIQUE: Digital bilateral breast liya (3D mammographic acquisition) in the CC and MLO projections. 2-D mediolateral oblique (MLO) and craniocaudad (CC) views of both breasts were obtained. CAD: Full Field Digital Mammography with Computer Added Detection was performed. COMPARISON: Comparison is made with prior ocular examination dated November 15, 2017 and November 29, 2014. FINDINGS: Breast Composition: The breasts are heterogeneously dense, which may obscure small masses. Multiple skin nodules are seen. There is skin thickening of the right breast with mild breast deformity. With the patient's history of bilateral palpable abnormalities, correlation with ultrasound is recommended. Since prior study, the nodular density appears decreased in size. A tissue clip marker is seen within the small nodule in the upper anterior medial aspect of the right breast. No other significant abnormalities are identified. BI/DIAG MAMM W/CAD, BILAT IMPRESSION: Interval decreased size of the previously seen bilateral breast nodules. Correlation with ultrasound of the palpable abnormalities is recommended. ASSESSMENT CATEGORY: BIRADS Category 0: Incomplete. Need additional imaging evaluation. A letter regarding these results will be sent to the patient by the facility within 30 days. Approximately 10% of breast cancers are not detected by mammography. A normal mammogram should not delay biopsy of a clinically suspicious abnormality. Electronically Signed: Emmanuel Díaz, at 10:42 EDT , Service support ,
--- NOTE | 2019-05-11 08:43 | US_ITS ---
STUDY: ULTRASOUND BREAST - RIGHT REASON FOR EXAM: Female, 49 years old. Palpable lump in the right breast. TECHNIQUE: Axial and longitudinal images of the RIGHT breast were performed with a high resolution ultrasound transducer. COMPARISON: Comparison is made with prior mammogram done earlier today. Comparison is also made with prior ultrasound of the breast dated November 29, 2014. FINDINGS: RIGHT Breast: The upper half of the right breast was examined by ultrasound. There is homogeneous fibroglandular tissue. No solid or cystic mass lesion is seen. IMPRESSION: Unremarkable sonogram. ASSESSMENT CATEGORY: BIRADS Category 1: Negative. A letter regarding these results will be sent to the patient by the facility within 30 days. Electronically Signed: Emmanuel Díaz, at 10:43 EDT , Service support , STUDY: ULTRASOUND BREAST - LEFT REASON FOR EXAM: Female, 49 years old. Palpable lump left breast. TECHNIQUE: Axial and longitudinal images of the LEFT breast were performed with a high resolution ultrasound transducer. COMPARISON: Comparison is made with prior mammogram done earlier in the day. FINDINGS: LEFT Breast: The area of the palpable abnormality is in the upper medial portion of the left breast. No solid or cystic mass lesion is seen. US/Breast Limited Unilateral IMPRESSION: Unremarkable sonographic examination. ASSESSMENT CATEGORY: BIRADS Category 1: Negative. A letter regarding these results will be sent to the patient by the facility within 30 days. Electronically Signed: Emmanuel Díaz, at 10:44 EDT , Service support ,
--- NOTE | 2019-05-11 10:09 | US_ITS ---
STUDY: ULTRASOUND BREAST - RIGHT REASON FOR EXAM: Female, 49 years old. Palpable lump in the right breast. TECHNIQUE: Axial and longitudinal images of the RIGHT breast were performed with a high resolution ultrasound transducer. COMPARISON: Comparison is made with prior mammogram done earlier today. Comparison is also made with prior ultrasound of the breast dated November 29, 2014. FINDINGS: RIGHT Breast: The upper half of the right breast was examined by ultrasound. There is homogeneous fibroglandular tissue. No solid or cystic mass lesion is seen. IMPRESSION: Unremarkable sonogram. ASSESSMENT CATEGORY: BIRADS Category 1: Negative. A letter regarding these results will be sent to the patient by the facility within 30 days. Electronically Signed: Emmanuel Díaz, at 10:43 EDT , Service support , STUDY: ULTRASOUND BREAST - LEFT REASON FOR EXAM: Female, 49 years old. Palpable lump left breast. TECHNIQUE: Axial and longitudinal images of the LEFT breast were performed with a high resolution ultrasound transducer. COMPARISON: Comparison is made with prior mammogram done earlier in the day. FINDINGS: LEFT Breast: The area of the palpable abnormality is in the upper medial portion of the left breast. No solid or cystic mass lesion is seen. US/Breast Limited Unilateral IMPRESSION: Unremarkable sonographic examination. ASSESSMENT CATEGORY: BIRADS Category 1: Negative. A letter regarding these results will be sent to the patient by the facility within 30 days. Electronically Signed: Emmanuel Díaz, at 10:44 EDT , Service support ,
== END ==
PROVIDERS: Family Provider Family Medicine; PCP Family Medicine
DX: L91.0 Hypertrophic scar (principal); N63.11 Unspecified lump in the right breast, upper outer quadrant; N64.4 Mastodynia
CPT/HCPCS: 76642; 77062; 77066; G0279

== ENCOUNTER 2019-07-08 11:58 | Emergency (ER) | payer MEDICAID, SELFPAY ==
[2019-07-08 11:59] VITALS: BP 162/84; PULSE 66; RESP 16; TEMP 36.8; O2SAT 98; BMI 34.0
--- NOTE | 2019-07-08 12:51 | EKG12_ITS ---
Test Reason : HYPERTENSION Blood Pressure : / mmHG Vent. Rate : 059 BPM Atrial Rate : 059 BPM P-R Int : 200 ms QRS Dur : 076 ms QT Int : 410 ms P-R-T Axes : 044 024 016 degrees QTc Int : 405 ms Sinus bradycardia Otherwise normal ECG Confirmed by DIMA PRESLEY, KIMO ([id number]), avid editor SELENA CALDWELL ([id number]) on 07/10/2019 2:26:51 PM Referred By: ALICIA Confirmed By:KIMO CH MD
--- NOTE | 2019-07-08 12:51 | RAD_ITS ---
STUDY: X-RAY CHEST REASON FOR EXAM: Female, 49 years old. Elevated blood pressure with blurred vision TECHNIQUE: Single AP portable view of the chest. COMPARISON: 04/17/2018 FINDINGS: The lungs are clear and expanded. There is no demonstrated pleural abnormality. Normal size heart. Normal mediastinum and hue. Normal visualized pulmonary arteries. Normal visualized aortic arch and descending thoracic aorta. Normal visualized thoracic spine. Normal visualized ribs, clavicles, and shoulders. There is no demonstrated abnormality of the visualized soft tissue structures of the upper abdomen. RAD/Chest 1 View (Portable) IMPRESSION: Normal x-ray examination of the chest. Electronically Signed: Adi Ledezma DO at 13:06 EST Tel , Service support ,
[2019-07-08] MEDS: 0.9% Normal Saline 1,000 ML 150 ML IV (13:23)
[2019-07-08 13:24] LABS: Bacteria 0 SEEN /hpf (None Seen); Mucous, Urine 0 SEEN /hpf (<or=2+); Red Blood Cells-Urine 0 SEEN /hpf (0-5); White Blood Cells 0 SEEN /hpf (0-5)
[2019-07-08 13:24] LABS: Absolute Lymphocyte Count 2.71 X10^3/uL (0.83-4.51); Absolute Neutrophil Count 3.4 X10^3/uL (2.0-7.7); Basophil# 0.06 X10^3/uL; Basophil% 0.9 % (0-1); Eosinophil# 0.33 X10^3/uL; Eosinophils% 4.8 % (0-5); Hemoglobin 10.8 g/dL (12.0-15.0); Lymphocyte # 2.71 X10^3/ul (4.0); Mean Corp Hgb Conc 30.9 g/dL (32-36); Mean Corpuscular Hgb 23.8 pg (27.0-32.0); Mean Corpuscular Volume 77.3 fL (81-99); Mean Platelet Vol. 9.2 fl (6.2-12.0); Monocyte# 0.44 X10^3/uL; Monocyte% 6.3 % (0-10); NRBC Flagged by Analyzer 0 % (0-5); Neutrophil # 3.38 X10^3/uL (2.7-7.7); Neutrophil % 48.7 % (47-70); Platelet Count 340 K/mm3 (150-450); RBC Distribution Width CV 15.3 % (11.6-14.6); RBC Distribution Width SD 42.4 fl (35.1-43.9); Red Blood Count 4.53 M/mm3 (4.2-5.4); White Blood Count 6.9 K/mm3 (4.4-11.0)
[2019-07-08 13:27] LABS: Color, Urine Yellow (Yellow); Glucose, Dipstick Normal (Normal); Ketone-Dipstick Negative (Negative); Leukocyte Esterase-Dipstick 25 /ul (Negative); Nitrite-Dipstick Negative (Negative); Occult Blood-Urine 25 /ul (Negative); Protein-Dipstick 15 mg/dl (Negative); Urine Bilirubin Dipstick Negative (Negative); Urine Clarity Sl. Cloudy (Clear); Urine Urobilinogen Normal (Normal)
[2019-07-08 13:31] LABS: Squamous Epithelial Cells - UA 10-25 SEEN /hpf (5-10)
[2019-07-08 13:42] LABS: Anion Gap 6 (5-15); BUN 9 mg/dL (7-18); BUN/Creat Ratio 8.6 RATIO (10-20); Chloride 107 mmol/L (98-107); Creatinine, Serum 1.05 mg/dL (0.55-1.02); EST Glomerular Filtration Rate 59 mL/min (>60); Est Glom Filt Rate - Afr Amer 71 mL/min (>60); Estimated Creatinine Clearance 54.74 ml/min; Glucose 77 mg/dL (74-106); Potassium 3.8 mmol/L (3.5-5.1); Sodium Level 140 mmol/L (136-145)
[2019-07-08 13:43] VITALS: BP 165/93; BP 172/112; BP 181/101; PULSE 61; PULSE 64; PULSE 68
--- NOTE | 2019-07-08 14:47 | ED.DCSUM_ITS ---
- ER Visit Summary Date of Service: 07/08/19 Chief Complaint: [Not feeling well, hypertension] History of Present Illness: The patient is a 49 F [presents to the emergency department with complaint of not feeling well for the last 3 days. Patient states that she is had urinary frequency and dysuria. Today she just felt off balance and stumbled several times. Patient went to [facility] and checked her blood pressure noted that it was elevated at 178/90. Patient states that she has been off her blood pressure medications for several weeks. She denies any chest pain or shortness of breath. She does feel somewhat fatigued. Patient apparently had some urinary issues that she and her physician thought may be related to Lasix so she discontinued that several months ago. Patient does have history of hypertension and history of rheumatoid arthritis. Patient denies any chest pain or shortness of breath. She denies severe headache.] Physical Examination: [HEENT-PERRLA, EOMI. Cranial nerves II through XII grossly intact. TMs clear. Mucous membranes moist. No adenopathy. Cardiovascular-regular rate and rhythm without murmur or ectopy Lungs-clear to auscultation, chest wall stable without crepitus or subcu emphysema Abdomen-normoactive bowel sounds, soft, nontender, no rebound or rigidity, no peritoneal signs. Neuro pyst-kizltr-ptrn and heel head testing within normal limits, negative Romberg, negative pronator drift, fundi benign. Extremities-intact ?4, normal range of motion, normal pulses, atraumatic] Test Results: [EKG obtained arrival shows sinus bradycardia with a ventricular rate of 59 bpm with no acute ST segment changes. CBC with differential shows a white count 6.9, hemoglobin 10.8, hematocrit 35, platelets 340. Chemistries unremarkable. Urinalysis normal. Troponin is less than 0.15. Chest x-ray showed nothing acute. As interpreted by myself. Orthostatic vital signs were negative.] Emergency Department Course and Treatment: [on arrival patient was placed on a infectious diseases physician.] Treatment Plan: [Patient will be started on hydrochlorothiazide which she had been on in the past. Patient states she tolerated that well in the past] Disposition: [Discharged home in stable condition. Patient advised to keep a journal of her blood pressures daily and follow-up with her primary care physician.] Impression: [Hypertension-established] This note was generated with Dragon dictation software. It may contain incorrect words, spelling, and punctuation that were not noted in review of the chart prior to signing ED Disposition - Plan for ED Patient: Referrals: Ashutosh Dwyer MD [Primary Care Provider] -
--- NOTE | 2019-07-08 14:51 | ED.DEP ---
ED Disposition - Plan for ED Patient: Instructions: HYPERTENSION, Established Prescriptions: Hydrochlorothiazide [Hctz] 25 mg PO DAILY #30 tab Prescription Printed Referrals: Ashutosh Dwyer MD [Primary Care Provider] - 5-7 Days
[2019-07-08 15:07] VITALS: BP 149/90; PULSE 70; RESP 16; O2SAT 99
== END 2019-07-08 15:07 | disposition home or self-care (01) ==
LOC: ED 12:54
PROVIDERS: Emergency Provider Emergency Medicine; Family Provider Family Medicine; PCP Family Medicine
DX: I10 Essential (primary) hypertension (principal); R06.00 Dyspnea, unspecified; R30.0 Dysuria; R35.0 Frequency of micturition; M06.9 Rheumatoid arthritis, unspecified; Z79.82 Long term (current) use of aspirin; Z79.899 Other long term (current) drug therapy
CPT/HCPCS: 71045; 80048; 81001; 84484; 85025; 93005; 96360; 96361; 99285; J7030; A4216

== ENCOUNTER 2019-08-24 13:09 | Emergency (ER) | payer MEDICAID, SELFPAY ==
[2019-08-24 13:10] VITALS: BP 160/85; PULSE 81; RESP 16; TEMP 36.2; O2SAT 100; BMI 34.3
[2019-08-24] MEDS: DiphenhydrAMINE 50 MG/ML Syringe 25 MG IV ×2 (13:52→14:15)
[2019-08-24] MEDS: proCHLORPERazine 10 MG/2 ML Vial IV (13:52)
[2019-08-24] MEDS: 0.9% Normal Saline 1,000 ML 999 ML IV (13:55)
[2019-08-24 13:59] LABS: Erythrocyte Sedimentation Rate 35 mm/hr (0-30)
--- NOTE | 2019-08-24 15:25 | ED.VIS.HA ---
History of Present Illness Chief Complaint: Headache Narrative: Patient presenting for evaluation secondary to headache. Patient reports that today she has been dealing with a headache. She reports that initially started with a throbbing sensation in her right ear. She then states that it went to her left ear. She now states that she was having some dimming of her vision. She denies that it was associated with a visual field cut. She denies any auras. She does report some light sensitivity as well as nausea. No recent head injuries. Patient reports that she has a history of migraine headaches, but this seems rather atypical for this. She denies any numbness or weakness associated with this. No neck stiffness. Review of systems otherwise negative. Past Medical History - Allergies and Home Meds Allergies/Adverse Reactions: Allergies Latex, Natural Rubber Allergy (Verified 08/24/19 13:09) Hives lidocaine Allergy (Verified 08/24/19 13:09) Anaphylaxis silver Allergy (Verified 08/24/19 13:09) Rash Sulfa (Sulfonamide Antibiotics) Allergy (Verified 08/24/19 13:09) Hives amlodipine [From Norvas] Adverse Reaction (Verified 08/24/19 13:09) HEADACHE Primary Care Physician: Ashutosh Dwyer MD [Primary Care Provider] - Past Medical History: - - Migraine headaches Surgical History: cholecystectomy, - - laparoscopy for tubal ligation Smoking Status: Never smoker - Family History Maternal Family History: Reports: Heart Disease Paternal Family History: Reports: Pulmonary Disease - PE Review of Systems All systems negative except as indicated General: Denies: Chills, Fever, Sweats Eyes: Reports: Visual changes - bilaterally ENT: Denies: Rhinorrhea, Sore throat Cardiovascular: Denies: Chest pain, Palpitations Respiratory: Denies: Dyspnea, Cough, Dyspnea on exertion Gastrointestinal: Reports: Nausea Genitourinary: Denies: Dysuria, Hematuria, Frequency Musculoskeletal: Denies: Back pain, Extremity Pain Skin: Denies: Rash, Wounds Neurological: Reports: Headache Physical Exam Vital Signs/Narrative: Vital Signs Temp Pulse Resp BP Pulse Ox 08/24/19 13:10 97.1 F L 81 16 160/85 H 100 General: Well nourished, Well developed Head: NC, AT, Temporary Artery Tenderness - Right-sided Eyes: Perrl, EOMI, - - Normal for endoscopy with no evidence of papilledema or retinal hemorrhages ENT: Moist mucous membranes, No rhinorrhea Neck: Supple, No Lymphadenopathy, No JVD, Nontender, No Meningismus Cardiovascular: Regular rate, Regular rhythm, No murmurs Respiratory: No distress, CTA bilaterally, Chest nontender Abdomen: Soft, Nontender, Nondistended, Normal bowel sounds Back: Nontender, Normal Inspection Extremities: Nontender, No edema Skin: Normal color, No rash Neuro: Alert, Oriented x3, Cranial nerves II-XII grossly intact, Normal Strength, Normal Sensation Psychological: Normal affect Diagnostic/Tx/Re-eval - Medical Decision Making Patient presented secondary to headache. She does have a history of migraines, but she reported this feels somewhat atypical for her usual migraine headaches. She had some temporal artery tenderness so IV was established laboratory studies were obtained. ESR found to be modestly elevated at 35, likely normal for a 49-year-old patient. Patient was given Compazine and Benadryl, and unfortunately had a dystonic reaction. She was given an additional 25 mg of Benadryl. Repeat evaluation of the patient at 1530 shows her to still have some dystonia and feels that she cannot sit still for CT scan. Patient on repeat evaluation had resolution of her headache. I did initially order a CT scan as her headache per her reports was uncharacteristic for her migraines, but given its resolution it seems unlikely that there is intracranial pathology. Patient at this time is requesting discharge due to her dystonia. She was informed that this sensation will likely pass as the Compazine is metabolized. Disposition: Home ED Disposition - Plan for ED Patient: Disposition: Home or Assisted Living Diagnosis: Migraine headache, Dystonic drug reaction Instructions: ED, Migraine (Classical) Referrals: Ashutosh Dwyer MD [Primary Care Provider] - As Needed
[2019-08-24 16:03] VITALS: BP 139/86
== END 2019-08-24 16:04 | disposition home or self-care (01) ==
PROVIDERS: Emergency Provider Emergency Medicine; Family Provider Family Medicine; PCP Family Medicine
DX: G43.909 Migraine, unspecified, not intractable, without status migrainosus (principal); G24.02 Drug induced acute dystonia; T43.3X5A Adverse effect of phenothiazine antipsychotics and neuroleptics, initial encounter; Y92.538 Other ambulatory health services establishments as the place of occurrence of the external cause
CPT/HCPCS: 85652; 96361; 96374; 96375; 99283; J7030; A4216

== ENCOUNTER → 2020-05-21 09:10 | Outpatient (CLI) | payer MEDICAID, SELFPAY ==
[2020-05-21 10:17] LABS: Erythrocyte Sedimentation Rate 25 mm/hr (0-30)
[2020-05-21 10:20] LABS: Absolute Lymphocyte Count 1.93 X10^3/uL (0.83-4.51); Absolute Neutrophil Count 3.9 X10^3/uL (2.0-7.7); Basophil# 0.04 X10^3/uL; Basophil% 0.6 % (0-1); Eosinophils% 8.8 % (0-5); Hematocrit 38.8 % (37-47); Hemoglobin 12.7 g/dL (12.0-15.0); Lymphocyte # 1.93 X10^3/ul (4.0); Lymphocyte % 28.3 % (19-41); Mean Corp Hgb Conc 32.7 g/dL (32-36); Mean Corpuscular Hgb 28.5 pg (27.0-32.0); Mean Corpuscular Volume 87.2 fL (81-99); Mean Platelet Vol. 10.7 fl (6.2-12.0); Monocyte% 4.4 % (0-10); NRBC Flagged by Analyzer 0 % (0-5); Neutrophil # 3.93 X10^3/uL (2.7-7.7); Neutrophil % 57.6 % (47-70); Platelet Count 311 K/mm3 (150-450); RBC Distribution Width SD 40.6 fl (35.1-43.9); Red Blood Count 4.45 M/mm3 (4.2-5.4); White Blood Count 6.8 K/mm3 (4.4-11.0)
[2020-05-21 10:24] LABS: Glucose 87 mg/dL (74-106); Rheumatoid Factor < 10.0 IU/mL (<15)
[2020-05-27 21:20] LABS: Angiotensin Convert Enzyme 38 U/L (14-82); HLA B27 Negative (.)
== END ==
PROVIDERS: PCP Family Medicine; Referring Provider Ophthalmology; Visit Provider Ophthalmology
DX: H43.89 Other disorders of vitreous body (principal)
CPT/HCPCS: 36415; 81374; 82164; 82947; 85025; 85652; 86431

== ENCOUNTER → 2020-06-24 | Outpatient (CLI) | payer MEDICAID, SELFPAY ==
[2020-06-29 13:15] LABS: HPV APTIMA, High Risk Negative (Negative)
== END | disposition home or self-care (01) ==
LOC: LABSPEC 16:28
PROVIDERS: PCP Family Medicine; Visit Provider Obstetrics & Gynecology
DX: Z12.4 Encounter for screening for malignant neoplasm of cervix (principal)
CPT/HCPCS: 87624; 88175; G0145

== ENCOUNTER → 2020-07-15 14:24 | Outpatient (CLI) | payer MEDICAID, SELFPAY ==
--- NOTE | 2020-07-15 14:29 | BI_ITS ---
MAMMOGRAPHY - BILATERAL DIAGNOSTIC REASON FOR EXAM: Female, 50 years old. Bilateral breast reduction surgery with extensive bilateral keloid scars. Patient presents with bilateral breast pain. PERTINENT HISTORY: Non-contributory. TECHNIQUE: Digital bilateral breast liya (3D mammographic acquisition) in the CC and MLO projections. 2-D mediolateral oblique (MLO) and craniocaudad (CC) views of both breasts were obtained. CAD: Full Field Digital Mammography with Computer Added Detection was performed. COMPARISON: Comparison is made with prior study dated 05/11/2019 and 11/29/2014. FINDINGS: Breast Composition: The breasts are heterogeneously dense, which may obscure small masses. There are no dominant masses or suspicious calcifications. Once again, there is evidence of multiple bilateral keloid scars which are marked with localizers. This is unchanged. A tissue clip marker is seen in the small nodule in the upper anterior medial aspect of the right breast. Stable benign-appearing bilateral axillary lymph nodes. No other significant abnormalities are identified. There has been no significant change since the prior study. BI/DIAG MAMM W/CAD, BILAT IMPRESSION: Stable bilateral diagnostic mammogram. With the patient''s history of bilateral breast pain, correlation with ultrasound is recommended. ASSESSMENT CATEGORY: BIRADS Category 0: Incomplete. Need additional imaging evaluation. A letter regarding these results will be sent to the patient by the facility within 30 days. Approximately 10% of breast cancers are not detected by mammography. A normal mammogram should not delay biopsy of a clinically suspicious abnormality. Electronically Signed: Emmanuel Díaz, at 8:20 EST , Service support ,
--- NOTE | 2020-07-15 14:29 | US_ITS ---
STUDY: ULTRASOUND BREAST - RIGHT REASON FOR EXAM: Female, 50 years old. Pain in the right breast. TECHNIQUE: Axial and longitudinal images of the RIGHT breast were performed with a high resolution ultrasound transducer. # OF IMAGES: 71 COMPARISON: Comparison is made with prior mammogram done earlier today. FINDINGS: RIGHT Breast: There is evidence of multiple keloids. No solid or cystic mass is seen within the breast. IMPRESSION: No abnormality is seen within the breast. There is evidence of multiple keloids. ASSESSMENT CATEGORY: BIRADS Category 2: Benign. A letter regarding these results will be sent to the patient by the facility within 30 days. Electronically Signed: Emmanuel Díaz, at 10:04 EST , Service support , STUDY: ULTRASOUND BREAST - LEFT REASON FOR EXAM: Female, 50 years old. Pain in the left breast. TECHNIQUE: Axial and longitudinal images of the LEFT breast were performed with a high resolution ultrasound transducer. # OF IMAGES: 71 COMPARISON: Comparison is made with prior mammogram done earlier today. FINDINGS: LEFT Breast: No sonographic abnormality is seen within the breast tissue. There is evidence of multiple keloids. The area of pain corresponds to a 3.9 cm x 4.1 cm x 1.1 cm keloid at the 5 o''clock position of the breast at 12 cm from nipple. US/Breast Limited Unilateral IMPRESSION: No sonographic abnormalities seen of the breast tissue. Multiple keloids. ASSESSMENT CATEGORY: BIRADS Category 2: Benign. A letter regarding these results will be sent to the patient by the facility within 30 days. Electronically Signed: Emmanuel Díaz, at 10:05 EST , Service support ,
== END ==
PROVIDERS: PCP Family Medicine; Referring Provider Obstetrics & Gynecology; Visit Provider Obstetrics & Gynecology
DX: N64.4 Mastodynia (principal)
CPT/HCPCS: 76642; 77062; 77066; G0279

== ENCOUNTER → 2020-10-03 15:08 | Outpatient (CLI) | payer MEDICAID, SELFPAY ==
[2020-10-03 15:31] LABS: Hematocrit 38.9 % (37-47); Hemoglobin 12.6 g/dL (12.0-15.0); Mean Corp Hgb Conc 32.4 g/dL (32-36); Mean Corpuscular Hgb 27.6 pg (27.0-32.0); Mean Corpuscular Volume 85.1 fL (81-99); Platelet Count 310 K/mm3 (150-450); RBC Distribution Width CV 13.1 % (11.6-14.6); RBC Distribution Width SD 40.2 fl (35.1-43.9); Red Blood Count 4.57 M/mm3 (4.2-5.4); White Blood Count 7.8 K/mm3 (4.4-11.0)
[2020-10-03 16:28] LABS: Estradiol 13.1 pg/mL; Prolactin 11.5 ng/mL; T4 Free Direct 0.91 ng/dL (0.76-1.46); Thyroid Stim Hormone (TSH) 2.21 uIU/mL (0.358-3.74)
== END ==
PROVIDERS: PCP Family Medicine; Visit Provider Obstetrics & Gynecology
DX: N93.9 Abnormal uterine and vaginal bleeding, unspecified (principal)
CPT/HCPCS: 36415; 82670; 83001; 83002; 84146; 84439; 84443; 85027

== ENCOUNTER 2021-08-27 15:00 | Outpatient (RCR) | payer MEDICAID, SELFPAY ==
--- NOTE | 2021-06-26 16:16 | HP.PTEVAL_ITS ---
Patient's Visit Information CHESTER CHAO is a 51 year old F referred to Physical Therapy by Dr. Ashutosh Dwyer MD with a diagnosis of chronic left hip pain.. Date of Evaluation: 06/26/21 Physical Therapist: Magali Reece - Visit Plan Frequency: 2x /Week Duration: 4 Weeks Plan: Stretches and core stability exercises for increased flexibility and stability. Manual traction as indicated for relief of symptoms. Progress core strengthening and LE strengthening as tolerated. - Subjective Pt reports that a couple months ago, felt a tingling/pulsing down inside of left leg with pain in her hip down to her knee. About a week later, she woke up with severe left hip pain that she describes as excrutiating. 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 She also reports she has neck pain that prevents her from lifting hands over head. Reports that stairs (especially descent) is difficult. She previously has had cortisone shots in the low back (many years ago) for pain. Pain: at rest 8/10, sharp pain, pulsing. At worst 10/10 with any hip movement. At best 4/10 laying down - Pain R hip Pain Intensity (Out of 10): 8 Pain Intensity Range: 4, 10 - Objective PALPATION: Tender to bilateral ASIS L>R, lumbar spinous processes, B PSIS, B piriformis L>R. ROM: Trunk: flexion, ~4 inches from floor, otherwise WFL (pain in L hip at EROM in all directions of rotation and SB), LEs WFL, except L hip flexion limited to 90 degrees secondary to pain, limited IR/ER rotation bilaterally secondary pain. Hamstrings tight bilaterally L>R. MMT: Left-. - hip: flexion 3+/5 (pain in back of leg), abduction 4/5, adduction 3+/5 (pain throughout entire hip). Knee: F/E 4+/5 (pain with resisted flexion in the low back). Right-. -hip: flexion 4-/5 (pain at top R glute), abduction 4/5, adduction 3+/5. Knee: F/E 5/5 (with pain in the knee). *Manual traction to L LE decreased pressure feeling in hip. GAIT: decreased speed and franklin, slight guarding apparent, but otherwise functional. - Balance/Special Test Scores Lower Extremity Functional Score: 13 - Goals Goal 1:: Patient to be I with HEP Goal Time Frame: 2-4 Weeks Goal 2:: Pt to increase SLR to at least 90 degrees bilaterally for increased LE ROM and function. Goal Time Frame: 4-6 Weeks Goal 3:: Pt to report ability to don/doff socks, indicating increased hip ROM for functional activities. Goal Time Frame: 4-6 Weeks Goal 4:: Pt to report decrease in pain with hip motion to 5/10 for increased participation in household tasks. Goal Time Frame: 4-6 Weeks Goal 5:: Pt to demonstrate at least 4+/5 global BLE strength for increased participation in functional tasks. Goal Time Frame: 4-6 Weeks Goal 6:: Pt to ascend/descend flight of stairs with 0-1/10 pain. Goal Time Frame: 2-4 Weeks - Rehabilitation Potential Physical Therapy Diagnosis: Patient presents with signs and symptoms consistent indicating low back pain/pathology related to hip and leg pain. Pt presents with severely. tight/restricted hamstring and piriformis length, likely from low back issues. Patient would benefit from skilled physical therapy to increase flexibility, strength, and participation in functional activities. Rehabilitation Potential: Good - Anticipated Interventions Thank you for the opportunity to evaluate your patient. For Medicare and Medicare HMO plans, please review the plan of care and approve it. It will need to be FAXED BACK to us at [phone] for Medicare purposes. For Medicare only, by signing this I certify the plan of care. Please let me know if there are questions or concerns regarding this plan of care. Physician Signature: Date:
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
--- NOTE | 2021-07-28 15:43 | HP.PTEVAL_ITS ---
Patient's Visit Information CHESTER CHAO is a 51 year old F referred to Physical Therapy by Dr. Ashutosh Dwyer MD with a diagnosis of chronic left hip pain.. Date of Evaluation: 06/26/21 Physical Therapist: Mihir Pereyra, PT, ATC - Visit Plan Frequency: 2x /Week Duration: 4 Weeks Plan: Stretches and core stability exercises for increased flexibility and stability. Progress core strengthening and LE strengthening as tolerated. - Subjective Pt reports that a couple months ago, felt a tingling/pulsing down inside of left leg with pain in her hip down to her knee. About a week later, she woke up with severe left hip pain that she describes as excrutiating. 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 She also reports she has neck pain that prevents her from lifting hands over head. Reports that stairs (e specially descent) is difficult. She previously has had cortisone shots in the low back (many years ago) for pain. Pain: at rest 8/10, sharp pain, pulsing. At worst 10/10 with any hip movement. At best 4/10 laying down - Pain R hip Pain Intensity (Out of 10): 0 Pain Intensity Range: 4, 10 L Hip Pain Intensity (Out of 10): 2 - Objective PALPATION: Tender to bilateral ASIS L>R, lumbar spinous processes, B PSIS, B piriformis L>R. ROM: Trunk: flexion, ~4 inches from floor, otherwise WFL (pain in L hip at EROM in all directions of rotation and SB), LEs WFL, except L hip flexion limited to 90 degrees secondary to pain, limited IR/ER rotation bilaterally secondary pain. Hamstrings tight bilaterally L>R. MMT: Left-. - hip: flexion 3+/5 (pain in back of leg), abduction 4/5, adduction 3+/5 (pain throughout entire hip). Knee: F/E 4+/5 (pain with resisted flexion in the low back). Right-. -hip: flexion 4-/5 (pain at top R glute), abduction 4/5, adduction 3+/5. Knee: F/E 5/5 (with pain in the knee). *Manual traction to L LE decreased pressure feeling in hip. GAIT: decreased speed and franklin, slight guarding apparent, but otherwise functional. - Balance/Special Test Scores Oswestry Neck Score: 35 Lower Extremity Functional Score: 11 - Goals Goal 1:: Patient to be I with HEP Goal Time Frame: 2-4 Weeks Goal 2:: Pt to increase SLR to at least 90 degrees bilaterally for increased LE ROM and function. Goal Time Frame: 4-6 Weeks Goal 3:: Pt to report ability to don/doff socks, indicating increased hip ROM for functional activities. Goal Time Frame: 4-6 Weeks Goal 4:: Pt to report decrease in pain with hip motion to 5/10 for increased participation in household tasks. Goal Time Frame: 4-6 Weeks Goal 5:: Pt to demonstrate at least 4+/5 global BLE strength for increased participation in functional tasks. Goal Time Frame: 4-6 Weeks Goal 6:: Pt to ascend/descend flight of stairs with 0-1/10 pain. Goal Time Frame: 2-4 Weeks - Rehabilitation Potential Physical Therapy Diagnosis: Patient presents with signs and symptoms consistent indicating low back pain/pathology related to hip and leg pain. Pt presents with severely. tight/restricted hamstring and piriformis length, likely from low back issues. Patient would benefit from skilled physical therapy to increase flexibility, strength, and participation in functional activities. Rehabilitation Potential: Good - Anticipated Interventions Thank you for the opportunity to evaluate your patient. For Medicare and Medicare HMO plans, please review the plan of care and approve it. It will need to be FAXED BACK to us at [phone] for Medicare purposes. For Medicare only, by signing this I certify the plan of care. Please let me know if there are questions or concerns regarding this plan of care. Physician Signature: Date:
--- NOTE | 2021-07-28 15:45 | HP.PTREVAL ---
Dr. Ashutosh Dwyer MD, It has been my pleasure to treat CHESTER CHAO over the last 7 visits for chronic left hip pain.. Please see the progress note below for an update on the physical therapy plan of care! Subjective: I was really sore this morning. I am better now Objective/Function: Pt can perform a SLR to 70 degrees bilaterally. L hip pain ranges from 4-7/10 depending on what movement she performs. Pt is able to don/doff socks I now. R hip flexion MMT is 4-/5. All other B hip MMT 5/5 throughout. B LE pain increased to 8/10 [address] negotiation Plan Plan: Stretches and core stability exercises for increased flexibility and stability. Progress core strengthening and LE strengthening as tolerated. Balance/Gait/Functional tests - Balance/Special Test Scores Oswestry Neck Score: 35 Lower Extremity Functional Score: 11 Goals Goal 1:: Patient to be I with HEP Goal Time Frame: 2-4 Weeks Goal Progress: Progressing Goal 2:: Pt to increase SLR to at least 90 degrees bilaterally for increased LE ROM and function. Goal Time Frame: 4-6 Weeks Goal Progress: Progressing Goal 3:: Pt to report ability to don/doff socks, indicating increased hip ROM for functional activities. Goal Time Frame: 4-6 Weeks Goal Progress: Goal Met Goal 4:: Pt to report decrease in pain with hip motion to 5/10 for increased participation in household tasks. Goal Time Frame: 4-6 Weeks Goal Progress: Progressing Goal 5:: Pt to demonstrate at least 4+/5 global BLE strength for increased participation in functional tasks. Goal Time Frame: 4-6 Weeks Goal Progress: Progressing Goal 6:: Pt to ascend/descend flight of stairs with 0-1/10 pain. Goal Time Frame: 2-4 Weeks Goal Progress: Progressing Anticipated Interventions Please do not hesitate to contact me at [phone] by phone or if you have questions or concerns regarding this new plan of care! Sincerely, Mihir Pereyra, PT, ATC
--- NOTE | 2021-08-27 15:43 | HP.PTDCS(2) ---
It has been my pleasure to treat CHESTER CHAO referred by Dr. Ashutosh Dwyer MD, with the diagnosis of NECK PAIN ON LEFT SIDE ,FIBROMYALGIA for a total of 10 visit(s). Discharge Date: 08/27/21 Please see the following information for a summary of their discharge status. Subjective: Doing well % Improvement: 75 Objective/Function/Assessment: POSTURE: WFL. CERVICAL ROM: FLEXION/ROTATION MIN.MOD LOSS,EXTENSION MOD LOSS,. BUE: WFL. MMT: 4/5 Patient Goals: Improve Function, Decrease Pain, Alleviate Pain, Improve ROM, Sleep Normal Goal 1:: I with HEP for neck pain Goal Progress: Goal Met Goal 2:: Patient to improve posture for ADL'S Goal Progress: Goal Met Goal 3:: Patient to demonstrate 50% improvement with decrease neck pain to improve function. Goal Progress: Goal Met Goal 4:: Patient to improve cervical ROM for function of recovery Goal 5:: Patient to improve neck owestry sore by 5 points or> to improve function Goal Progress: Goal Met Plan: D/C If there are questions or concerns regarding this patient's physical therapy, please feel free to call me at [phone]. Thank you for the referral of this patient. Sincerely, Jay Edwards, PT, Cert MDT, OCS
== END 2021-08-27 19:00 | disposition home or self-care (01) ==
LOC: PT 15:00
PROVIDERS: PCP Family Medicine; Referring Provider Family Medicine; Visit Provider Family Medicine
DX: M25.552 Pain in left hip (principal); G89.29 Other chronic pain; M79.7 Fibromyalgia
CPT/HCPCS: 97110; 97140; 97161; 97162; 97164

== ENCOUNTER 2021-11-19 15:13 | Outpatient (CLI) | payer MEDICAID, SELFPAY ==
--- NOTE | 2021-11-19 15:15 | BI_ITS ---
MAMMOGRAPHY - BILATERAL SCREENING REASON FOR EXAM: Female, 51 years old. Routine annual screening examination. PERTINENT HISTORY: Non-contributory. History of prior bilateral breast reduction surgery. Bilateral keloid formation. TECHNIQUE: Digital bilateral breast marbella (3D mammographic acquisition) in the CC and MLO projections. 2-D mediolateral oblique (MLO) and craniocaudad (CC) views of both breasts were obtained. CAD: Full Field Digital Mammography with Computer Added Detection was performed. COMPARISON: Comparison is made with prior examination dated 07/15/2020 and 05/11/2019. FINDINGS: Breast Composition: The breasts are heterogeneously dense, which may obscure small masses. There are no dominant masses or suspicious calcifications. Once again, there is evidence of a bilateral keloid scars. A tissue clip marker is once again seen in the nodule in the upper anterior medial aspect of the right breast. Stable benign-appearing bilateral axillary nodes. No other significant abnormalities are identified. There has been no significant change since the prior study. BI/SCRN MAMM (CAD)W/MARBELLA BILAT IMPRESSION: Stable bilateral screening mammogram. Yearly follow-up mammogram recommended. (A) ASSESSMENT CATEGORY: BIRADS Category 2: Benign. A letter regarding these results will be sent to the patient by the facility within 30 days. Approximately 10% of breast cancers are not detected by mammography. A normal mammogram should not delay biopsy of a clinically suspicious abnormality. [id number] Electronically Signed: Emmanuel Díaz MD at 8:13 EDT ,
== END 2021-11-19 23:59 | disposition home or self-care (01) ==
PROVIDERS: PCP Family Medicine; Visit Provider Obstetrics & Gynecology
DX: Z12.31 Encounter for screening mammogram for malignant neoplasm of breast (principal)
CPT/HCPCS: 77063; 77067

== ENCOUNTER → 2024-03-12 | Outpatient (CLI) | payer MEDICAID, SELFPAY ==
[2024-03-12 15:47] LABS: Mucous, Urine 0 SEEN /hpf (<or=2+); Red Blood Cells-Urine 0 SEEN /hpf (0-5); White Blood Cells 0 SEEN /hpf (0-5)
[2024-03-12 16:07] LABS: Color, Urine Yellow (Yellow); Glucose, Dipstick Normal (Normal); Ketone-Dipstick Negative (Negative); Leukocyte Esterase-Dipstick 25 /ul (Negative); Nitrite-Dipstick Negative (Negative); Occult Blood-Urine Negative /ul (Negative); Protein-Dipstick Negative (Negative); Urine Bilirubin Dipstick Negative (Negative); Urine Clarity Clear (Clear); Urine Urobilinogen Normal (Normal)
[2024-03-12 16:15] LABS: Bacteria RARE /hpf (None Seen); Squamous Epithelial Cells - UA 0-5 SEEN /hpf (5-10)
== END | disposition home or self-care (01) ==
LOC: LABSPEC 15:29
PROVIDERS: PCP Family Medicine; Referring Provider Nurse Practitioner Family; Visit Provider Nurse Practitioner Family
DX: R30.0 Dysuria (principal)
CPT/HCPCS: 81001; 87086

== ENCOUNTER → 2025-06-21 | Outpatient (CLI) | payer MEDICAID, SELFPAY ==
[2025-06-21 13:36] LABS: Color, Urine Yellow (Yellow); Glucose, Dipstick Normal (Normal); Ketone-Dipstick Negative (Negative); Leukocyte Esterase-Dipstick Negative /ul (Negative); Nitrite-Dipstick Negative (Negative); Occult Blood-Urine 25 /ul (Negative); Protein-Dipstick 15 mg/dl (Negative); Specific Gravity, Urine 1.015 (1.002-1.030); Urine Bilirubin Dipstick Negative (Negative)
[2025-06-21 13:41] LABS: Hematocrit 37.1 % (37-47); Hemoglobin 12.1 g/dL (12.0-15.0); Immature Granulocytes Count 0.040 X10^3/uL (0.0-0.0); Mean Corp Hgb Conc 32.6 g/dL (32-36); Mean Corpuscular Volume 78.9 fL (81-99); Mean Platelet Vol. 10.5 fl (6.2-12.0); NRBC Flagged by Analyzer 0 % (0-5); Platelet Count 353 K/mm3 (150-450); RBC Distribution Width CV 15.5 % (11.6-14.6); RBC Distribution Width SD 44.2 fl (35.1-43.9); Red Blood Count 4.70 M/mm3 (4.2-5.4); White Blood Count 7.9 K/mm3 (4.4-11.0)
[2025-06-21 14:29] LABS: AST(SGOT) 32 U/L (<=31); Alanine Aminotransfer ALT/SGPT 30 U/L (<=34); Albumin, Serum 4.2 g/dL (3.5-5.0); Alkaline Phosphatase 135 U/L (35-104); Anion Gap 10 (5-15); BUN 10 mg/dL (4-19); BUN/Creat Ratio 9.9 RATIO (10-20); Calcium,Total 9.9 mg/dL (7.6-11.0); Carbon Dioxide 26.6 mmol/L (21.0-32.0); Chloride 104 mmol/L (98-108); Cholesterol 229 mg/dL (<=200); Globulin 4.0 g/dL (2.2-4.2); Glucose 103 mg/dL (70-99); Low Density Lipoprotein Calc. 157 mg/dL; Potassium 3.9 mmol/L (3.3-5.1); Triglycerides 80 mg/dL; Very Low Density Lipoprotein 16 mg/dL (5-40); Vitamin D,25 Hydroxy 64.1 ng/mL (30-100); cholesterol:hdl ratio screen 3.96
[2025-06-24 14:08] LABS: ANTINUCLEAR ANTIBODIES DIRECT Negative (Negative); CRP, High Sensitivity 16.44 mg/L (0.00-3.00)
== END | disposition home or self-care (01) ==
PROVIDERS: PCP Family Medicine Geriatric Medicine; Referring Provider Family Medicine Geriatric Medicine; Visit Provider Family Medicine Geriatric Medicine
DX: E78.5 Hyperlipidemia, unspecified (principal); M32.9 Systemic lupus erythematosus, unspecified; I10 Essential (primary) hypertension; E55.9 Vitamin D deficiency, unspecified; R30.0 Dysuria
CPT/HCPCS: 36415; 80053; 80061; 81002; 82306; 85025; 85652; 86038; 86141; 87077; 87086; 87088; 87186